=== PATIENT | male | born 1960 | race Caucasian/White ===

== ENCOUNTER 2017-02-18 20:27 | Emergency (ER) | payer OTHER ==
[~2017-02-18 20:27] MED LIST: HYDROCODON-ACE1 EAC7 PO; KEFLEX500 M1 PO; PREDNISONE PO; VICODIN 5/1 TAB 5/50 PO; [UNRECOGNIZED DRUG - REMARK]
[2017-02-18] MEDS ORDERED: ZOFRAN (20:46)
== END 2017-02-18 21:32 | disposition home or self-care (01) ==
LOC: SED 20:27
DX: T81.33XA Disruption of traumatic injury wound repair, initial encounter (principal); F17.200 Nicotine dependence, unspecified, uncomplicated; Z85.841 Personal history of malignant neoplasm of brain
CPT/HCPCS: 99282